=== PATIENT | male | born 1970 | race Caucasian/White ===

== ENCOUNTER 2019-07-29 17:56 | Emergency (ER) | payer BC ==
[~2019-07-29] VITALS: Ht 188 cm; Wt 84.4 kg
[2019-07-29 18:06] VITALS: Ht 188 cm; Wt 84.4 kg
[2019-07-29 19:18] LABS: BASOPHIL % 0.4 % (0-2); PLATELET COUNT 179 x10^3mcL (130-400); RED CELL DISTRIBUTION WIDTH 14.4 % (11.5-14.5)
[2019-07-29 19:41] LABS: CARBON DIOXIDE 30.8 mmol/L (21-32); CREATININE SERUM 2.3 mg/dL (0.7-1.3); POTASSIUM SERUM 4.3 mmol/L (3.5-5.1)
[2019-07-29 19:44] LABS: ALBUMIN 3.7 g/dL (3.4-5.0); BILIRUBIN TOTAL 0.5 mg/dL (0.20-1.00); TOTAL PROTEIN, SERUM 7.2 g/dL (6.4-8.2)
[2019-07-29 19:50] LABS: T3 TOTAL 0.96 ng/mL
[2019-07-29 20:04] LABS: FREE T4 0.79 ng/dL (0.76-1.46)
[2019-07-29 20:09] LABS: FREE THYROXINE INDEX 1.6 ug/dL (1.4-4.5)
[2019-07-29 22:00] VITALS: BP 140/89
== END 2019-07-29 22:00 | disposition home or self-care (01) ==
LOC: ED 17:56
PROVIDERS: Emergency Medicine
DX: I10 Essential (primary) hypertension (principal); M79.601 Pain in right arm; N28.9 Disorder of kidney and ureter, unspecified; Z94.1 Heart transplant status; V43.52XA Car driver injured in collision with other type car in traffic accident, initial encounter; Y93.I9 Activity, other involving external motion; Y92.413 State road as the place of occurrence of the external cause; Y99.8 Other external cause status
CPT/HCPCS: 36415; 84439; Q0092